=== PATIENT | female | born 1960 | race Hispanic/Latino ===

== ENCOUNTER 2017-11-17 08:21 | Outpatient (CLI) | payer BC | END 2017-11-17 08:22 | disposition home or self-care (01) | LOC: BICMAMMO 08:21 | PROVIDERS: ATTEND Family Medicine | DX: Z12.31 Encounter for screening mammogram for malignant neoplasm of breast (principal) | CPT/HCPCS: 77063; 77067 ==

== ENCOUNTER 2018-02-15 08:03 | Day surgery (SDC) | payer BC ==
--- NOTE | 2018-02-15 02:39 | HP ---
SHORT STAY HISTORY AND PHYSICAL DATE OF ADMISSION: 02/15/2018 HISTORY OF PRESENT ILLNESS: Ms. Shaniqua Vázquez is a very pleasant 57-year-old white female referred t o me for a colonoscopy for colon cancer screening. The patient has no specific GI symptoms. There i s no family history of colon cancer. The patient's bowel movements are fairly regular. However, she is having abdominal pain off and on for the last couple of months. The pain occurs in random. The pain has no accompanying symptoms. The patient is undergoing colonoscopy for colon cancer screening. ALLERGIES: None. SOCIAL HISTORY: The patient does not smoke or drink alcohol. MEDICAL ILLNESSES: 1. Diabetes mellitus. 2. Hypertension. 3. Rheumatoid arthritis. 4. Skin cancer. 5. Partial hysterectomy. PHYSICAL EXAMINATION: VITAL SIGNS: Pulse is 70, blood pressure 130/80. HEENT: Conjunctivae clear. CARDIOVASCULAR: Within normal limits. LUNGS: Within normal limits. ABDOMEN: Soft to palpate. No organomegaly. No tenderness. No masses. ADMITTING DIAGNOSIS: A 57-year-old Latin-[place] female comes for a colonoscopy for colon cancer rula pederson.
--- NOTE | 2018-02-15 12:08 | OP ---
DATE OF PROCEDURE: 02/15/2018 SURGEON: Milton Becker M.D. OPERATIVE PROCEDURE: Colonoscopy with biopsy. PREOPERATIVE DIAGNOSIS: A 57-year-old female undergoing colonoscopy for colon cancer screening. POSTOPERATIVE DIAGNOSES: 1. Small sessile cecal polyp. 2. Redundant tortuous colon. PROCEDURE IN DETAIL: The patient was placed on her left lateral position and was given sedation by A nesthesia Department. A rectal exam was done before the scope was advanced into the rectum. No lesi on felt on rectal exam. A Pentax video colonoscope was introduced into the rectum and advanced all t he way to the cecum. The prep was good. The mucosa appeared normal. The patient had a redundant to rtuous colon. The appendical orifice and ileocecal valve, no pathology seen. She has small sessile cecal polyp removed with biopsy forceps. The ascending colon, hepatic flexure, transverse colon, and splenic flexure, no pathology seen. In the descending colon, sigmoid colon, no lesions seen. The r ectum showed no lesion.
--- NOTE | 2018-02-15 12:12 | OP ---
DATE OF PROCEDURE: 02/15/2018 SURGEON: Milton Becker M.D. OPERATIVE PROCEDURE: Esophagogastroduodenoscopy. PREOPERATIVE DIAGNOSIS: A 57-year-old female with chronic acid reflux, longstanding. The patient undergoing esophagogastroduodenoscopy. POSTOPERATIVE DIAGNOSES: 1. Normal vocal cords. 2. The patient has a history of chronic acid reflux, at endoscopy the esophagus appeared normal. 3. Normal stomach and duodenum. PROCEDURE IN DETAIL: The patient was placed on her left lateral position and was given sedation by A nesthesia Department. A Pentax video gastroscope under direct vision was passed in the oropharynx, p ast the GE junction, into the stomach and subsequently into the descending duodenum. Although patien t gives history of chronic acid reflux, on endoscopy the esophagus appears completely normal. No eso phagitis seen. The GE junction, no pathology seen. Retroflexion failed to show any lesions in the f undus or cardia. The gastric body and gastric antrum, no pathology seen. The duodenal bulb and desc ending duodenum, no pathology seen. The stomach was decompressed and the scope removed. DISCHARGE PLANNING: This is a 57-year-old female with chronic acid reflux who came fo r an EGD and a colonoscopy for colon cancer screening. The EGD was basically negative. The colonosc opy showed a small sessile cecal polyp. This was removed. DISCHARGE RECOMMENDATIONS: 1. The patient advised to call me if she develops abdominal pain and hematochezia. 2. High-fiber diet. 3. Repeat colonoscopy in 5 years.
[2018-02-15] MEDS ORDERED: PROPOFOL 200 MG/20 ML VIAL ONE (13:59)
[2018-02-15] MEDS ORDERED: Lidocaine 1% PF 5 ML VIAL ONE (13:59)
== END 2018-02-15 11:05 | disposition home or self-care (01) ==
LOC: SDC 08:03
PROVIDERS: ATTEND Internal Medicine Gastroenterology
PROC: 0DJ08ZZ Inspection of Upper Intestinal Tract, Via Natural or Artificial Opening Endoscopic (ICD-10-PCS; principal; 2018-02-15)
PROC: 0DBH8ZX Excision of Cecum, Via Natural or Artificial Opening Endoscopic, Diagnostic (ICD-10-PCS; principal; 2018-02-15)
DX: K63.5 Polyp of colon (principal); Q43.8 Other specified congenital malformations of intestine; K21.9 Gastro-esophageal reflux disease without esophagitis; E11.9 Type 2 diabetes mellitus without complications; I10 Essential (primary) hypertension; M06.9 Rheumatoid arthritis, unspecified; Z85.828 Personal history of other malignant neoplasm of skin
CPT/HCPCS: 88305; J2001; J2704

== ENCOUNTER 2019-07-13 11:20 | Outpatient (CLI) | payer BC ==
--- NOTE | 2019-07-13 13:59 | ULT ---
RENAL ULTRASOUND: INDICATIONS: Cystitis. FINDINGS: The right kidney measured 10 cm in length. The left kidney measured 11.6 cm. No evidence of hydronephrosis or mass lesion. The bladder is evaluated. Pre-void volume recorded at 60 mL. Post-void volume recorded at 1 mL. IMPRESSION: Unremarkable renal ultrasound. POS: MERRY
== END 2019-07-13 11:21 | disposition home or self-care (01) ==
LOC: SCSULT 11:20
PROVIDERS: ATTEND Family Medicine
DX: N30.90 Cystitis, unspecified without hematuria (principal)
CPT/HCPCS: 76770

== ENCOUNTER 2019-11-06 08:20 | Outpatient (CLI) | payer BC ==
--- NOTE | 2019-11-06 09:15 | MMO ---
Bilateral MAMMO Bilat Screen [facility]. CLINICAL HISTORY: Patient is 59 years old and is seen for screening. The patient has no family history of breast cancer. The patient has no personal history of cancer. VIEWS: The views performed were: bilateral craniocaudal with tomosynthesis and bilateral mediolateral oblique with tomosynthesis. FILMS COMPARED: The present examination has been compared to prior imaging studies performed at [facility] on 07/23/2014, 08/06/2015, 09/23/2016 and 11/17/2017. This study has been interpreted with the assistance of computer-aided detection. MAMMOGRAM FINDINGS: There are scattered fibroglandular densities. There are stable benign appearing calcifications seen in both breasts. There are no suspicious masses, suspicious calcifications, or new areas of architectural distortion. IMPRESSION: THERE IS NO MAMMOGRAPHIC EVIDENCE OF MALIGNANCY. A ROUTINE FOLLOW-UP MAMMOGRAM IN 1 YEAR IS RECOMMENDED. THE RESULTS OF THIS EXAM WERE SENT TO THE PATIENT. ACR BI-RADS Category 2 - Benign finding MAMMOGRAPHY NOTE: 1. A negative mammogram report should not delay a biopsy if a dominant of clinically suspicious mass is present. 2. Approximately 10% to 15% of breast cancers are not detected by mammography. 3. Adenosis and dense breasts may obscure an underlying neoplasm. Reported by: RUBIN LÓPEZ MD Electonically Signed: [id number]
== END 2019-11-06 08:21 | disposition home or self-care (01) ==
LOC: BICMAMMO 08:20
PROVIDERS: ATTEND Family Medicine
DX: Z12.31 Encounter for screening mammogram for malignant neoplasm of breast (principal)
CPT/HCPCS: 77063; 77067

== ENCOUNTER 2020-11-15 07:51 | Outpatient (CLI) | payer BC ==
--- NOTE | 2020-11-15 08:34 | MMO ---
Bilateral MAMMO Bilat Screen [facility]. CLINICAL HISTORY: Patient is 60 years old and is seen for screening. The patient has no family history of breast cancer. The patient has no personal history of cancer. VIEWS: The views performed were: bilateral craniocaudal with tomosynthesis and bilateral mediolateral oblique with tomosynthesis. FILMS COMPARED: The present examination has been compared to prior imaging studies performed at [facility] on 08/06/2015, 09/23/2016, 11/17/2017 and 11/06/2019. This study has been interpreted with the assistance of computer-aided detection. MAMMOGRAM FINDINGS: There are scattered fibroglandular densities. There are vascular calcifications seen in both breasts. There are no suspicious masses, suspicious calcifications, or new areas of architectural distortion. IMPRESSION: A ROUTINE FOLLOW-UP MAMMOGRAM IN 1 YEAR IS RECOMMENDED. THE RESULTS OF THIS EXAM WERE SENT TO THE PATIENT. ACR BI-RADS Category 2 - Benign finding MAMMOGRAPHY NOTE: 1. A negative mammogram report should not delay a biopsy if a dominant of clinically suspicious mass is present. 2. Approximately 10% to 15% of breast cancers are not detected by mammography. 3. Adenosis and dense breasts may obscure an underlying neoplasm. Reported by: PERNELL VANEGAS MD Electonically Signed: [id number]
== END 2020-11-15 07:52 | disposition home or self-care (01) ==
LOC: BICMAMMO 07:51
PROVIDERS: ATTEND Family Medicine
DX: Z12.31 Encounter for screening mammogram for malignant neoplasm of breast (principal)
CPT/HCPCS: 77063; 77067

== ENCOUNTER 2022-05-18 08:00 | Outpatient (CLI) | payer BC | END 2022-05-18 08:01 | disposition home or self-care (01) | LOC: BICMAMMO 08:00 | PROVIDERS: ATTEND Family Medicine | DX: Z12.31 Encounter for screening mammogram for malignant neoplasm of breast (principal); Z13.820 Encounter for screening for osteoporosis; M85.89 Other specified disorders of bone density and structure, multiple sites | CPT/HCPCS: 77063; 77067; 77080 ==

== ENCOUNTER 2023-06-04 07:44 | Outpatient (CLI) | payer BC | END 2023-06-04 07:45 | disposition home or self-care (01) | LOC: BICMAMMO 07:44 | PROVIDERS: ATTEND Family Medicine | DX: Z12.31 Encounter for screening mammogram for malignant neoplasm of breast (principal); N64.89 Other specified disorders of breast | CPT/HCPCS: 77063; 77067 ==

== ENCOUNTER 2023-06-10 07:57 | Outpatient (CLI) | payer BC | END 2023-06-10 07:58 | disposition home or self-care (01) | LOC: BICMAMMO 07:57 | PROVIDERS: ATTEND Family Medicine | DX: N64.89 Other specified disorders of breast (principal) | CPT/HCPCS: G0279 ==